=== PATIENT | female | born 1995 | race Caucasian/White ===

== ENCOUNTER 2018-08-02 06:45 | Inpatient (IN) | payer MEDICAID, SELFPAY ==
[2018-08-02 06:23] VITALS: BMI 40.5
[2018-08-02 06:42] LABS: ROM Internal Control Test YES-OK TO RESULT pt. (Internal QC)
[2018-08-02 06:43] LABS: ROM Patient Test POSITIVE (Negative)
[2018-08-02 07:42] LABS: Hematocrit 34.8 % (37-47); Mean Corp Hgb Conc 31.6 g/gl (32-36); Mean Corpuscular Hgb 26.3 pg (27.0-32.0); Mean Corpuscular Volume 83.3 fL (81-99); Mean Platelet Vol. 11.5 fl (6.2-12.0); Platelet Count 258 K/mm3 (150-450); RBC Distribution Width CV 14.3 % (11.6-14.6); RBC Distribution Width SD 42.7 fl (35.1-43.9); Red Blood Count 4.18 M/mm3 (4.2-5.4); White Blood Count 9.2 K/mm3 (4.4-11.0)
[2018-08-02 07:43] LABS: Scan Indicated on CBC? Y/N NO
[2018-08-02] MEDS: Lactated Ringers 1,000 ML 50 ML IV (07:45)
--- NOTE | 2018-08-02 08:38 | PCM.HP.OB ---
- Problem List (1) PROM (premature rupture of membranes) Status: Acute (2) History of pre-eclampsia Status: Acute (3) Obesity affecting in third trimester, antepartum Status: Acute History Date of Admission: 08/02/18 Final RAFA: 08/16/18 Gestational age: 38 Weeks and 0 Days History of this : This is a 22 year-old, G [2], P [1], at 38 weeks gestational age. Presented to L&D with premature rupture of membranes at approximately 0400 this am. Upon arrival no contractions or discomfort. OB history of pre-eclampsia and obesity. Allergies No Known Allergies Allergy (Verified 08/02/18 06:32) Home Medications: Home Medications Aspirin [Aspirin, Baby] 81 mg PO DAILY@0800 08/02/18 Ferrous Sulfate [Iron] 236 mg PO DAILY 08/02/18 Pnv 11-Iron Fum-Folic Acid-Om3 [Virt-Mick Dha Softgel] 1 cap PO DAILY 08/02/18 Smoking Status: Never smoker Alcohol: None Number of Fetus(es): 1 Heart Tracin, moderate variability, accels, no decels Category 1 TOCO Analysis: No contractions History Past Pregnancies: Past Pregnancies Delivery Date Name GA/Weeks Outcome Route Weight Gender Labor Length Anesthesia Delivery Location Provider FOB Labs: RPR negative HIV negative HBsAG negative O positive GBS negative GC/CT negative Rubella Immune Expected Infant Delivery Method: Spontaneous Vaginal Review of Systems Constitutional: Denies: Chills, Fever, Weight Change HEENT: Denies: Head Aches, Sinus Congestion, Sinus Drainage Cardiovascular: Denies: Chest Pain, Palpitations Respiratory: Denies: Cough, Shortness of breath at rest, Sputum production Gastrointestinal: Denies: Abdominal Pain, Nausea, Vomiting Genitourinary: Denies: Dysuria Neurological: Denies: Numbness, Tingling, Focal weakness Psychiatric: Denies: Anxiety, Depression, Homicidal Ideations, Suicidal Ideations Physical Exam General: Alert, Oriented x3, No apparent distress HEENT: Atraumatic, Normocephalic Cardiovascular: Regular rate, Regular Rhythm, No murmurs Lungs: Clear to auscultation, No rhonchi, No wheeze Abdomen: Gravid Extremities:: No edema Neurological: Deep Tendon Reflexes 2+/4 and Symmetrical. Negative for: Clonus GAMING SURVEILLANCE OBSERVER: Normal external genitalia Estimated gestational size: Appropriate for gestational size Presentation: Cephalic - Difficulty assessing with Tavares's, verified cephalic by bedside U/S Cervix Dilation (cm): 1.5 - per nursing staff Station: -3 Effacement (%): 60 Assessment/Plan All Active Problems PROM (premature rupture of membranes) (Acute) History of pre-eclampsia (Acute) Obesity affecting in third trimester, antepartum (Acute) This is a 22 year-old, G [2], P [1], at 38 weeks gestational age. Premature Rupture of Membranes A: 1) Admit to L&D, routine orders 2) Labs and IV saline lock 3) Discussed with patient options for PROM, expectant management vs. active management with IOL. Patient prefers IOL. Reviewed options of cervical ripening with PO Cytotec vs. Pitocin, patient prefers cervical ripening with PO cytotec. Discussed risks, benefits, alternatives and plan. Patient voiced understanding and would like to proceed with PO cytotec. 4) Reviewed movement and frequent position changes. Planning epidural once active labor. 5) collaborative physician, notified of patient admission and plan. 6) Would like Nexplanon LARC. Hansa Ricardo, MAK, CNM
[2018-08-02] MEDS: 0.9% Saline Lock 10 ML Syringe IV ×2 (09:10→16:47)
[2018-08-02] MEDS: miSOPROStol 25 MCG TABLET PO ×2 (09:21→13:02)
[2018-08-02] MEDS: Oxytocin 30 units/NS 500 ml 30 UNITS/500 ML IV.SOLN 334 UNITS IV (17:22)
[2018-08-02] MEDS: Oxytocin 30 units/NS 500 ml 30 UNITS/500 ML IV.SOLN 167 UNITS IV (17:52)
--- NOTE | 2018-08-02 18:04 | PCM.OB.VAG ---
- Problem List (1) PROM (premature rupture of membranes) Status: Acute (2) History of pre-eclampsia Status: Acute (3) Obesity affecting in third trimester, antepartum Status: Acute (4) Vaginal delivery Status: Acute (5) First degree perineal laceration during delivery Status: Acute Vaginal Delivery Maternal Presentation: Spontaneous Rupture of Membranes Method of Induction: Cytotec Medical Reason for Induction: Premature Rupture of Membranes Amniotic Membrane Rupture Type: Spontaneous Amniotic Fluid Description: Clear Final RAFA: 08/16/18 Gestational age: 38 Weeks and 0 Days Date of Procedure: 08/02/18 Pre-Operative Diagnosis: PROM Post-Operative Diagnosis: Vaginal delivery Surgery/ Procedure Performed: Spontaneous Vaginal Delivery Type of Anesthesia: Local with 1% lidocaine Description of Procedure: Called by nursing staff that patient was 6-7cm and more uncomfortable, asking for epidural. Patient then progressed rapidly and called over for delivery. Patient was complete upon presentation to L&D with desire to push. of viable female over 1st degree perineal laceration. APGARS 9,9, weight pending. Spontaneous cry, placed on maternal abdomen, mouth and nares suctioned for secretions. Cord clamped and cut after delayed cord clamping, by FOB. Pitocin started for active 3rd stage management. Placenta delivered via maternal effort, isaac, intact, 3 vessel cord. Perineum inspected and revealed 1st degree perineal laceration. Repaired with 3.0 vicryl with Lidocaine and Nitrous for repair, tolerated well. Fundus firm and hemostasis achieved. EBL 400ml. Vulvar varicosities present. Planning to breastfeed. Mom and baby stable. Family bonding well. notified. Placental Delivery Description: Spontaneous Placenta Disposition: [facility] Cord Vessel Description: 3 Vessels Cord Entanglement: None Estimated Blood Loss: 400ml A gender: Female (1 minute): 9 (5 minute): 9 Episiotomy Description: None Laceration: Perineal Extension/lac, 1st degree Medications given after delivery: IV Pitocin
[2018-08-02] MEDS: Ibuprofen 600 MG Tablet PO (18:45)
[2018-08-02 23:20] VITALS: BP 104/55; PULSE 85; RESP 17; TEMP 36.3
[2018-08-03] MEDS: Ibuprofen 600 MG Tablet PO ×2 (00:33→06:23)
[2018-08-03 03:15] VITALS: BP 107/55; PULSE 92; RESP 17; TEMP 36.2
[2018-08-03] MEDS: Acetaminophen 500 MG Tablet 1000 MG PO (03:20)
[2018-08-03] MEDS: Etonogestrel 68 MG IMPLANT SQ (07:45)
--- NOTE | 2018-08-03 07:55 | PCM.PN.OB ---
Patient Problems: Active and Suspected Problems PROM (premature rupture of membranes) (Acute) History of pre-eclampsia (Acute) Obesity affecting in third trimester, antepartum (Acute) Vaginal delivery (Acute) First degree perineal laceration during delivery (Acute) Subjective: Pain well controlled, average lochia. Urinating without difficulty. No other complaints this morning. - Physical Exam General: Alert, Cooperative, No apparent distress Vital Signs Temp Pulse Resp BP 97.1 F L 92 17 107/55 L 08/03/18 03:15 08/03/18 03:15 08/03/18 03:15 08/03/18 03:15 Oxygen Delivery Method Room Air Weight: 100.471 kg Body Mass Index (BMI) 40.5 Intake and Output for Last 24 Hours 08/01/18 08/02/18 08/03/18 23:59 23:59 23:59 Intake Total 807 / 807 Output Total 500 / 500 400 / 400 Balance 307 / 307 -400 / -400 Laboratory Tests Past 24 Hrs 08/02/18 07:35 Blood Type A POSITIVE Antibody Screen NEGATIVE Medical Necessity - Tobacco Use Smoking Status: Never smoker Assessment/Plan All Active Problems PROM (premature rupture of membranes) (Acute) History of pre-eclampsia (Acute) Obesity affecting in third trimester, antepartum (Acute) Vaginal delivery (Acute) First degree perineal laceration during delivery (Acute) PPD#1 doing well would like to d/c home today if ok w/ peds R/B/A/P to nexplanon insertion reviewed. Questions answered. Consent signed. Procedure note: Nexplanon insertion. Indication: Contraception Performed by : Shellie amado MD Patient confirmed by name and date of . Timeout performed. Left arm prepped with Betadine in the standard fashion. 3 cc of 1% Xylocaine plain solution were injected subcutaneously into the skin of the left upper arm in the usual area. The Nexplanon was inserted without difficulty. Care was taken to ensure that the Nexplanon remained directly under the skin. The device was deployed. The Nexplanon remained in the arm and was confirmed by palpation. A bandage was placed over the area and instructions for care were reviewed. The patient tolerated the procedure well. There were no complications.
[2018-08-03 08:18] VITALS: BP 116/63; PULSE 81; RESP 18; TEMP 36.2
[2018-08-03] MEDS: Ferrous Gluconate 324 MG Tablet PO (10:02)
[2018-08-03 12:24] VITALS: BP 97/47; PULSE 63; RESP 18; TEMP 36.4
--- NOTE | 2018-08-03 14:09 | DCINST_ITS ---
Discharge Diet: No Restrictions Discharge Activity: Return to Normal Activity, May not drive while taking narcotic pain medications., May Shower May resume sexual activity in: 4-6 weeks Weight Bearing Status: Full weight bearing Lifting Restrictions: None Call your doctor if you observe: Fever of 101 or Higher, Inability to urinate, Inability to have a bowel movement, Using more than one pad per hour, Shortness of breath, Dizziness, Chest pain, Calf discomfort, Uncontrolled pain Additional Instructions: If you experience any of the following, contact your healthcare provider. * Bleeding that soaks a pad every hour for 2 hours * Fever 100.4 or higher * Unrelieved incision or abdominal pain * Swelling, redness, discharge or bleeding from your incision or episiotomy site * Your incision begins to separate * Problems urinating (including inability to urinate or burning while urinating). * Visual changes * Severe headache * Flu-like symptoms * Pain or redness in one of both of your breasts * Pain, warmth, tenderness or swelling in your legs, especially the calf area * Frequent nausea and vomiting * Symptoms of depression or anxiety If you experience any of the following, call 911 or go to the nearest Emergency Room. * Chest pain * Problems breathing * Seizure activity * Partial or complete paralysis of a body part, slurred speech, weakness or drooping of the face, or a sudden inability to walk or hold your balance Allergies/Adverse Reactions: Allergies No Known Allergies Allergy (Verified 08/02/18 06:32) Medications to take at Discharge Aspirin [Aspirin, Baby] 81 mg PO DAILY@0800 08/02/18 Ferrous Sulfate [Iron] 236 mg PO DAILY 08/02/18 Pnv 11-Iron Fum-Folic Acid-Om3 [Virt-Mick Dha Softgel] 1 cap PO DAILY 08/02/18 When: In 1-2 weeks, and then in 4-6 weeks for visits Primary Care Physician: Care Physician,No Primary [Primary Care Provider] - Test Results: Test results from this visit will be discussed in further detail at your follow- up appointment, if applicable.
[2018-08-03 16:00] VITALS: BP 100/56; PULSE 70; RESP 16; TEMP 36.5
== END 2018-08-03 19:20 | disposition home or self-care (01) | DRG 560 ==
LOC: WPOUT 06:46
PROVIDERS: Obstetrics & Gynecology; Admitting Provider Obstetrics & Gynecology; Referring Provider Obstetrics & Gynecology; Visit Provider Obstetrics & Gynecology
DX: O42.92 Full-term premature rupture of membranes, unspecified as to length of time between rupture and onset of labor (principal); O70.0 First degree perineal laceration during delivery; O99.214 Obesity complicating childbirth; Z68.41 Body mass index [BMI] 40.0-44.9, adult; Z3A.38 38 weeks gestation of pregnancy; Z37.0 Single live birth
CPT/HCPCS: 59025; 59050; 76815; 84112; 85027; 86850; 86900; 99218; J7120; A4216; G0378

== ENCOUNTER 2021-08-14 09:00 | Emergency (ER) | payer OTHER, SELFPAY ==
[2021-08-14 09:01] VITALS: BP 127/83; PULSE 125; RESP 16; TEMP 37.1; O2SAT 92; BMI 36.6
--- NOTE | 2021-08-14 09:28 | RAD_ITS ---
STUDY: X-RAY CHEST REASON FOR EXAM: Female, 25 years old. Cough TECHNIQUE: Single AP portable view of the chest. COMPARISON: None. FINDINGS: Focal infiltrate in the right upper lobe as well as in the right perihilar region. Patchy infiltrate also seen in the left lower lobe. Blunting of the left costophrenic angle. Normal size heart. Normal mediastinum and terry. Normal visualized pulmonary arteries. Normal visualized aortic arch and descending thoracic aorta. Normal visualized thoracic spine. Normal visualized ribs, clavicles, and shoulders. There is no demonstrated abnormality of the visualized soft tissue structures of the upper abdomen. RAD/Chest 1 View (Portable) IMPRESSION: Bilateral pulmonary infiltrates as described. Blunting of the left costophrenic angle. Electronically Signed: Kip Carlos MD at 10:48 EDT , Service support ,
--- NOTE | 2021-08-14 09:30 | EDS_ITS ---
HPI History of Present Illness Chief Complaint: Nausea/Vomiting Onset/Context/Timing Onset: Days (3) Context: Gradual Onset Timing: Continuous Quality: Sharp, burning Location: Diffuse Worsened by: Nothing Relieved by: Nothing Narrative Narrative: Patient presents with nausea, vomiting, and diarrhea for the past 3 days. Patient states her diarrhea has been loose and watery. Patient denies any melena or hematochezia. Patient states her nausea and vomiting has just been stomach contents. Patient denies any hematemesis or coffee-ground emesis. Patient also admits to some diffuse abdominal pain. Patient describes it as sharp and burning. Patient also admits to some dysuria but denies any hematuria. Patient also states she was diagnosed with COVID-19 5 days ago. Patient states she is unable to keep anything down. PFSH PFSH Medical History no medical history no medical history Home Medications albuterol sulfate [Ventolin HFA] 1 - 2 puff INHALATION Q4H PRN PRN #1 inhaler 08/14/21 [Rx Last Taken Unknown] ondansetron 4 mg PO Q8H PRN PRN #10 tab 08/14/21 [Rx Last Taken Unknown] Allergy/AdvReac Type Severity Reaction Status Date / Time No Known Allergies Allergy Verified 08/02/18 06:32 Surgical History no surgical history no surgical history Social History Smoking Status: Never smoker ROS ROS ED Constitutional Constitutional ED: Reports fever(s) and subjective; Denies chills Eyes Eyes: Denies blurry vision or change in vision ENT ENT ED: Reports rhinorrhea and sore throat Cardiovascular Cardiovascular: Reports chest pain; Denies palpitations Respiratory/Chest Respiratory/Chest: Reports cough and dyspnea Gastrointestinal Gastrointestinal: Reports abdominal pain, diarrhea, nausea and vomiting Genitourinary Genitourinary ED: Reports dysuria; Denies hematuria Musculoskeletal Musculoskeletal: Reports back pain; Denies neck pain Integumentary Denies abscess or rash Neurologic Neurologic: Reports headache(s); Denies weakness Allergic/Immunologic Allergic/Immunologic ED: Denies mouth swelling or urticaria EXAM Physical Exam Const Vital Signs: 08/14/21 09:01 Temperature 98.8 F Temperature Source Oral Pulse Rate 125 H Respiratory Rate 16 Blood Pressure 127/83 H Blood Pressure Mean 97 Pulse Ox 92 Oxygen Delivery Method Room Air Positive well nourished and well developed General Appearance ED: well developed HEENT Reports moist mucous membranes Neck supple and no JVD Resp normal respiratory effort and clear to auscultation bilaterally Cardio regular rhythm and no murmurs Rate: tachycardic GI normal to inspection, nondistended, normoactive bowel sounds Palpation: soft and tender epigastric, LLQ, RLQ, LUQ, RUQ, periumbilical and suprapubic; Negative for guarding or rebound tenderness present Extremity normal to inspection General Extremety ED: Negative for edema or tenderness General Extremity: Negative for edema Neuro oriented x3, CN's II-XII intact bilaterally and no sensory deficits noted Sensorium / Orientation: alert Motor Exam: strength 5/5 throughout Psych mental status grossly normal Skin no rashes or lesions noted MDM MDM MDM Narrative Medical decision making narrative: Patient was given IV fluids and Zofran. Portable chest x-ray was obtained. There is 1 view. On my interpretation, there is bilateral lower lobe infiltrates. There is a left pleural effusion. Bony thorax is normal. There is no cardiomegaly. Radiologist also interpreted the x-ray and agrees. CBC was essentially within normal limits. Comprehensive metabolic profile was normal. Serum hCG was negative. Urinalysis does not show any evidence of urinary tract infection. Patient was feeling better on reevaluation. Patient was given a note for work. Patient was instructed to follow-up with her primary care physician in 5 to 7 days. Patient was given prescriptions for albuterol inhaler and Zofran. Patient understood and was agreeable with the plan. All questions were answered. Lab Data Attestation: I reviewed the patient's lab results. Labs: Laboratory Results - last 24 hr 08/14/21 08/14/21 08/14/21 09:40 09:40 09:40 WBC 3.6 L RBC 5.39 Hgb 13.6 Hct 43.6 MCV 80.9 L MCH 25.2 L MCHC 31.2 L RDW Std Deviation 41.4 RDW Coeff of Frankie 14.1 Plt Count 168 MPV 11.3 Immature Gran % (Auto) 0.600 Neut % (Auto) 82.4 H Lymph % (Auto) 13.9 L [place] % (Auto) 3.1 Eos % (Auto) 0.0 Baso % (Auto) 0.0 Absolute Neuts (auto) 3.0 Absolute Lymphs (auto) 0.50 L Nucleated RBC % 0 Diff Path Review May foll Sodium 138 Potassium 3.7 Chloride 105 Carbon Dioxide 24.0 Anion Gap 9 BUN 9 Creatinine 0.86 Estim Creat Clear Calc 89.98 Est GFR (MDRD) Af Amer 102 Est GFR (MDRD) Non-Af 84 BUN/Creatinine Ratio 10.4 Glucose 92 Calcium 8.5 Total Bilirubin 0.40 AST 80 H ALT 41 Alkaline Phosphatase 73 Total Protein 7.9 Albumin 3.1 L Globulin 4.8 H Albumin/Globulin Ratio 0.6 L Lipase 171 Serum , Qual NEGATIVE Urine Color Urine Clarity Urine pH Ur Specific [place] Urine Protein Urine Glucose (UA) Urine Ketones Urine Occult Blood Urine Nitrite Urine Bilirubin Urine Urobilinogen Ur Leukocyte Esterase Urine RBC Urine WBC Ur Squamous Epith Cells Urine Bacteria Urine Mucus 08/14/21 10:23 WBC RBC Hgb Hct MCV MCH MCHC RDW Std Deviation RDW Coeff of Frankie Plt Count MPV Immature Gran % (Auto) Neut % (Auto) Lymph % (Auto) [place] % (Auto) Eos % (Auto) Baso % (Auto) Absolute Neuts (auto) Absolute Lymphs (auto) Nucleated RBC % Diff Path Review Sodium Potassium Chloride Carbon Dioxide Anion Gap BUN Creatinine Estim Creat Clear Calc Est GFR (MDRD) Af Amer Est GFR (MDRD) Non-Af BUN/Creatinine Ratio Glucose Calcium Total Bilirubin AST ALT Alkaline Phosphatase Total Protein Albumin Globulin Albumin/Globulin Ratio Lipase Serum , Qual Urine Color Yellow Urine Clarity Sl. Cloudy Urine pH 6.0 Ur Specific [place] 1.020 Urine Protein 100 H Urine Glucose (UA) Normal Urine Ketones 150 A* Urine Occult Blood 10 H Urine Nitrite Negative Urine Bilirubin 1 H Urine Urobilinogen 4 H Ur Leukocyte Esterase 25 H Urine RBC 0 SEEN Urine WBC 0-5 SEEN Ur Squamous Epith Cells 0-5 SEEN Urine Bacteria 1+ Urine Mucus 0 SEEN Radiography Chest X-Ray - ED: 1 View, Read by ED Physician, Read by Radiologist, Right Infiltrate, Left Infiltrate and Left Effusion Diagnostic Testing: Clinical Impression(s) from Imaging Studies Chest X-Ray 08/14/21 09:28 IMPRESSION: Bilateral pulmonary infiltrates as described. Blunting of the left costophrenic angle. Electronically Signed: Kip Carlos MD at 10:48 EDT , Service support , Discharge Plan Triage Chief Complaint: Nausea/Vomiting ED Provider: Jerardo Franklin Dx/Rx/DC Orders Clinical Impression: Pneumonia due to COVID-19 virus, Nausea, vomiting, and diarrhea Instructions: Coronavirus Disease 2019 (COVID-19): Overview, ED Vomiting and Diarrhea ... Prescriptions: New albuterol sulfate [Ventolin HFA] 1 INHALER inhaler 1 - 2 puff inhalation Q4H PRN PRN (Reason: Wheezing) Qty: 1 RF: 0 ondansetron [ondansetron] 4 MG tablet 4 mg PO Q8H PRN PRN (Reason: Nausea) Qty: 10 RF: 0 Stand Alone Forms: ED Work / School Excuse Primary Care Provider: Care Physician,No Primary Referrals: Naomi Arellano MD [STAFF PHYSICIAN] - 5-7 Days Care Physician,No Primary [Primary Care Provider] - Disposition Disposition: Home, Self Care
[2021-08-14 09:50] LABS: Hematocrit 43.6 % (37-47); Hemoglobin 13.6 g/dL (12.0-15.0); Lymphocyte % 13.9 % (19-41); Mean Corp Hgb Conc 31.2 g/dL (32-36); Mean Corpuscular Hgb 25.2 pg (27.0-32.0); Mean Corpuscular Volume 80.9 fL (81-99); Mean Platelet Vol. 11.3 fl (6.2-12.0); Monocyte# 0.11 X10^3/uL; Monocyte% 3.1 % (0-10); NRBC Flagged by Analyzer 0 % (0-5); Neutrophil # 2.96 X10^3/uL (2.7-7.7); Neutrophil % 82.4 % (47-70); POSITIVE DIFFERENTIAL YES; Platelet Count 168 K/mm3 (150-450); RBC Distribution Width CV 14.1 % (11.6-14.6); RBC Distribution Width SD 41.4 fl (35.1-43.9); Red Blood Count 5.39 M/mm3 (4.2-5.4); White Blood Count 3.6 K/mm3 (4.4-11.0)
[2021-08-14 09:51] LABS: Differential Indicated SCAN CRITERIA MET
[2021-08-14 10:09] LABS: Internal QC Validated? YES +Cl - CLEAR BKGD; Pregnancy, Serum, hCG Quali. NEGATIVE Negative
[2021-08-14 10:25] LABS: ALB/GLOB Ratio 0.6 RATIO (0.9-2.4); AST(SGOT) 80 U/L (15-37); Alanine Aminotransfer ALT/SGPT 41 U/L (13-56); Albumin, Serum 3.1 g/dL (3.2-5.0); Alkaline Phosphatase 73 U/L (45-117); Anion Gap 9 (5-15); BUN 9 mg/dL (7-18); BUN/Creat Ratio 10.4 RATIO (10-20); Calcium,Total 8.5 mg/dL (8.5-10.1); Chloride 105 mmol/L (98-107); Creatinine, Serum 0.86 mg/dL (0.55-1.02); EST Glomerular Filtration Rate 84 mL/min (>60); Est Glom Filt Rate - Afr Amer 102 mL/min (>60); Estimated Creatinine Clearance 89.98 ml/min; Globulin 4.8 g/dL (2.2-4.2); Glucose 92 mg/dL (74-106); Lipase 171 U/L (73-393); Potassium 3.7 mmol/L (3.5-5.1); Protein, Total 7.9 g/dL (6.4-8.2); Sodium Level 138 mmol/L (136-145)
[2021-08-14] MEDS: 0.9% Normal Saline 1,000 ML 1000 ML IV (10:25)
[2021-08-14] MEDS: Ondansetron 4 MG/2 ML Vial IV (10:25)
[2021-08-14 10:31] LABS: Mucous, Urine 0 SEEN /hpf (<or=2+); Red Blood Cells-Urine 0 SEEN /hpf (0-5)
[2021-08-14 10:35] LABS: Color, Urine Yellow (Yellow); Glucose, Dipstick Normal (Normal); Leukocyte Esterase-Dipstick 25 /ul (Negative); Nitrite-Dipstick Negative (Negative); Occult Blood-Urine 10 /ul (Negative); Protein-Dipstick 100 mg/dl (Negative); Urine Clarity Sl. Cloudy (Clear); Urine Urobilinogen 4 mg/dl (Normal)
[2021-08-14 10:40] LABS: Urine Bilirubin Dipstick 1 mg/dL (Negative)
[2021-08-14 10:41] LABS: Ketone-Dipstick 150 mg/dl (Negative)
[2021-08-14 10:43] LABS: White Blood Cells 0-5 SEEN /hpf (0-5)
[2021-08-14 10:44] LABS: Bacteria 1+ /hpf (None Seen); Squamous Epithelial Cells - UA 0-5 SEEN /hpf (5-10)
[2021-08-14 11:26] VITALS: BP 121/71; PULSE 107; RESP 18; O2SAT 93
[2021-08-15 09:07] LABS: Pathologist Review Reviewed
== END 2021-08-14 11:27 | disposition home or self-care (01) ==
PROVIDERS: Emergency Provider Emergency Medicine
DX: U07.1 COVID-19 (principal); J12.82 Pneumonia due to coronavirus disease 2019
CPT/HCPCS: 71045; 80053; 81001; 83690; 84703; 85025; 96361; 96374; 99283; J7030; A4216; J2405